=== PATIENT | female | born 1955 | race Caucasian/White ===

== ENCOUNTER 2021-08-01 07:47 | Day surgery (SDC) | payer MEDICARE, BC ==
[~2021-08-01 07:47] MED LIST: Lactated Ringers 1,000 ML IV SCH; Lidocaine 1%/Sod Bicarbonate in NS 8.4% 1 ML Syringe IDERM PRN; Sodium Chloride 0.9% 10 ML Syringe FLUSH PRN; Sodium Chloride 0.9% 10 ML Syringe FLUSH SCH
[2021-08-01] MEDS ORDERED: Propofol 200 MG/20 ML SDV ONE ×3 (08:10→09:22)
[2021-08-01] MEDS ORDERED: Lidocaine 1% 4 ML ONE (08:11)
== END 2021-08-01 10:40 | disposition home or self-care (01) ==
LOC: JD.SDS 07:47
PROVIDERS: ATTEND Surgery
DX: Z12.11 Encounter for screening for malignant neoplasm of colon (principal); K57.30 Diverticulosis of large intestine without perforation or abscess without bleeding; R15.9 Full incontinence of feces; M85.80 Other specified disorders of bone density and structure, unspecified site; E66.9 Obesity, unspecified; K21.9 Gastro-esophageal reflux disease without esophagitis; Z68.41 Body mass index [BMI] 40.0-44.9, adult; Z79.899 Other long term (current) drug therapy
CPT/HCPCS: G0121; J2704; J7120; 00812

== ENCOUNTER 2022-05-10 16:32 | Emergency (ER) | payer MEDICARE, BC ==
[2022-05-10] MEDS ORDERED: Sodium Chloride 0.9% 10 ML Syringe FLUSH PRN (16:54)
[2022-05-10] MEDS ORDERED: Meclizine 25 MG Tab PO ONE (17:33)
[2022-05-10] MEDS ORDERED: Iopamidol 755 Mg/ML 100 ML Bottle IVPUSH ONE (17:44)
[2022-05-10] MEDS ORDERED: Sodium Chloride 0.9% 100 ML IV SCH (17:45)
== END 2022-05-10 18:39 | disposition home or self-care (01) ==
LOC: JD.ED 16:32
DX: R42 Dizziness and giddiness (principal); E66.9 Obesity, unspecified; Z68.41 Body mass index [BMI] 40.0-44.9, adult
CPT/HCPCS: 36415; 70450; 70496; 70498; 80053; 82947; 84484; 85025; 85610; 85730; 93005; 99284; A9270; J3490; 93010

== ENCOUNTER 2024-09-25 14:34 | Day surgery (SDC) | payer MEDICARE, BC ==
[2024-09-25] MEDS: Polymyxin B/Trimethoprim 10 ML Bottle EYERT SCH (15:23)
[2024-09-25] MEDS: Tropicamide 1% Ophth Soln 3 ML Bottle EYERT SCH (15:39)
[2024-09-25] MEDS: Tetracaine HCl/PF 0.5% 4 ML Bottle EYEBOTH SCH (16:39)
[2024-09-25] MEDS: Lidocaine 1% PF 2 ML SDV INJECT SCH (17:02)
[2024-09-25] MEDS: Cefuroxime 10 MG/ML SYRINGE EYERT SCH (17:15)
[2024-09-25] MEDS: Pilocarpine 4% Ophth Soln 15 ML Bot EYERT SCH (17:15)
== END 2024-09-25 17:26 | disposition home or self-care (01) ==
LOC: JD.SDS 14:34
PROVIDERS: ATTEND Ophthalmology
DX: H25.813 Combined forms of age-related cataract, bilateral (principal); H11.153 Pinguecula, bilateral; Z79.899 Other long term (current) drug therapy
CPT/HCPCS: 66984; A9270; J0697; J2003; 00142; C1780; J3490